=== PATIENT | female | born 1980 | race American Indian/Alaskan Native ===

== ENCOUNTER 2020-10-18 15:50 | Outpatient (CLI) | payer MEDICAID ==
[2020-10-18 17:30] LABS: Bacteria,Urine 1+ /HPF (Negative); Bilirubin,Urine NEG (Negative); Blood,Urine NEG (Negative); Color,Urine Straw (Yellow); Mucus,Urine FEW /HPF; Protein,Urine <15 mg/dL mg/dL (Negative); Urobilinogen,Urine < 2.0 mg/dL (<2.0)
[2020-10-18] MEDS: TERBUTALINE 1 MG/1 ML INJ SUB-Q SCH ×3 (18:24→20:00)
[2020-10-18] MEDS: LACTATED RINGERS 1,000 ML IV SCH ×2 (18:27→20:02)
[2020-10-18 20:03] VITALS: BP 137/63
== END 2020-10-18 21:00 | disposition home or self-care (01) ==
LOC: TRG 15:50 → APU 16:34 → TRG 21:00
PROVIDERS: ATTEND Obstetrics & Gynecology
DX: O26.893 Other specified pregnancy related conditions, third trimester (principal); R10.9 Unspecified abdominal pain; M25.559 Pain in unspecified hip; Z3A.35 35 weeks gestation of pregnancy
CPT/HCPCS: 59025; 81001; 96360; 96361; 96372; J3105; J7120